=== PATIENT | male | born 1960 | race African-American/Black ===

== ENCOUNTER 2020-02-29 13:22 | Emergency (ER) | payer MEDICARE, MEDICAID ==
[2020-02-29] MEDS ORDERED: NORMAL SALINE 1000 ML 1,000 ML IV ONE (15:02)
--- NOTE | 2020-02-29 15:38 | ER Document Report ---
Entered by EMMA BOWER SCRIBE 02/29/20 1454 Acting as scribe for:LAVINIA SAINZ MD ED Fall - General Chief Complaint: Fall Stated Complaint: FALL Time Seen by Provider: 02/29/20 14:52 Primary Care Provider: NANI ANTHONY MD [Primary Care Provider] - Follow up as needed Mode of Arrival: Medic Information source: Parent Notes: This 59 year old male patient with a history significant for mental retardation, hypertension, hyperlipidemia, and type 2 diabetes brought in by EMS from home presents to the ED today for evaluation of a fall that occurred prior to arrival. Mother at bedside states that the patient was returning home after having a suprapubic catheter placed this afternoon when he got out of the car and fell x2 on the pavement. She states that he hit his head, but denies LOC. She mentions that it appeared as if he was unsteady on his feet and that he usually able to ambulated on his own without difficulty. She states that the patient has been NPO since yesterday evening. EMS reports BGL of 404. Past Medical History - General Information source: Parent - Social History Smoking Status: Unknown if Ever Smoked Smoking Education Provided: No Lives with: Parents Family History: Reviewed & Not Pertinent - Medical History Medical History: Other - Hx Mental Retardation - Past Medical History Cardiac Medical History: Reports: Hx Hypercholesterolemia, Hx Hypertension Endocrine Medical History: Reports: Hx Diabetes Mellitus Type 2 Renal/ Medical History: Reports: Hx Benign Prostatic Hyperplasia Physical Exam - Vital signs Vitals: Temp Pulse Resp BP Pulse Ox 97.3 F 103 H 18 129/72 H 100 02/29/20 13:43 02/29/20 13:43 02/29/20 13:43 02/29/20 13:43 02/29/20 13:43 - General General appearance: Alert In distress: None - HEENT Head: Abrasions - Abrasion and swelling over frontotemporal area of the scalp Eyes: Normal Pupils: PERRL - Respiratory Respiratory status: No respiratory distress Chest status: Nontender Breath sounds: Normal Chest palpation: Normal - Cardiovascular Rhythm: Regular Heart sounds: Normal auscultation Murmur: No Friction rub: No Gallop: None auscultated - Abdominal Inspection: Normal Distension: No distension Bowel sounds: Normal Tenderness: Nontender Organomegaly: No organomegaly - Back Back: Normal, Nontender - Extremities General upper extremity: Normal inspection General lower extremity: Normal inspection. No: Edema - Neurological Neuro grossly intact: Yes - Nonverbal at baseline per patient's mother - Psychological Associated symptoms: Normal affect, Normal mood - Skin Skin Temperature: Warm Skin Moisture: Dry Skin Color: Normal Course - Vital Signs Vital signs: Temp Pulse Resp BP Pulse Ox 97.3 F 103 H 18 129/72 H 100 02/29/20 13:43 02/29/20 13:43 02/29/20 13:43 02/29/20 13:43 02/29/20 13:43 - Laboratory Result Diagrams: 02/29/20 15:50 02/29/20 15:50 Laboratory results interpreted by me: 02/29/20 02/29/20 02/29/20 15:50 15:50 15:50 RBC 4.29 L Hgb 12.7 L Hct 36.8 L Plt Count 538 H Lymph % (Auto) 12.7 L BUN 42 H Creatinine 1.58 H Est GFR ( Amer) 55 L Est GFR (MDRD) Non-Af 45 L Glucose 358 H Hemoglobin A1c % 9.7 H ALT 173 H Alkaline Phosphatase 155 H - Diagnostic Test Radiology reviewed: Image reviewed, Reports reviewed - CT scan of the head shows chronic atrophy and microvascular ischemic changes with nothing acute. - EKG Interpretation by Me EKG shows normal: Sinus rhythm, [place], Intervals, QRS Complexes, ST-T Waves Rate: Tachycardia - 103 Discharge - Discharge Clinical Impression: Syncope and collapse, Dehydration, Poorly controlled diabetes mellitus Scalp contusion Qualifiers: Encounter type: initial encounter Qualified Code(s): S00.03XA - Contusion of scalp, initial encounter Condition: Stable Disposition: HOME, SELF-CARE Additional Instructions: Syncopal Episode: Syncope (fainting or near-fainting) can occur from many different health problems. Or it can be a simple fainting spell requiring no treatment. It is safe for you to go home, but further evaluation will likely be necessary. Your work-up may include tests for internal bleeding, heart disease, medication problems, or near-strokes. Tests are not always required, however, depending on the nature of your problem. The warning signs of an impending faint include: dizziness, lighthea dedness, nausea, hot flashes, tingling, and weakness. If this happens, lay down and put your feet up, then wait until all of these symptoms have passed before standing up again. If these episodes become recurrent, or if you develop chest pain, heart palpitations, mental confusion, blurred vision, or headache, then you should call the physician, or go to the emergency room. Dehydration: Dehydration can result from vomiting or diarrhea, fever, or decreased intake of fluids. If severe, hospitalization and intravenous fluids may be required. Most cases are treated at home with fluids by mouth. For the next 24 hours, drink lots of clear fluids. In mild cases, this can be soda pop or sports drinks. For more severe dehydration, the doctor may recommend special fluids such as Pedialyte or Lytren. Try to get three liters (3 quarts) of fluid per day. If vomiting occurs, continue to drink the fluids frequently (every 15 to 20 minutes), but in small amounts (one or two ounces). Depending on the type of dehydration, the doctor may prescribe antinausea medicine or potassium replacements. Call the doctor or return for re-examination if you become progressively we ak, vomit repeatedly, or have other new symptoms. Hyperglycemia: Your blood sugar was quite high today at 358. Hemoglobin A1c was 9.7 indicating these high blood sugars are a chronic problem. Your blood work today suggest that you are dehydrated. That would be expected since you had not had anything to eat or drink since before midnight. You probably collapsed due to your blood pressure going low when you stood up since you were dehydrated. Also your blood sugars are running quite high and that also contributes to becoming dehydrated. The contusion to your scalp is not serious. You should drink plenty of fluids throughout the day today and take all of your regular medications when you get home. Follow-up with your primary care provider and take copies of your lab work with you when you go to see him. RETURN TO THE EMERGENCY ROOM IF ANY NEW OR WORSENING SYMPTOMS. Referrals: NANI ANTHONY MD [Primary Care Provider] - Follow up as needed PRIETO ALVARES MD [NO LOCAL MD] - Follow up in 3-5 days I personally performed the services described in the documentation, reviewed and edited the documentation which was dictated to the scribe in my presence, and it accurately records my words and actions.
[2020-02-29 16:09] LABS: ABSOLUTE BASOPHILS # (AUTO) 0.1 10^3/uL (0.0-0.2); ABSOLUTE LYMPHOCYTES (AUTO) 1.3 10^3/uL (0.5-4.7); ABSOLUTE MONOCYTES (AUTO) 1.2 10^3/uL (0.1-1.4); ABSOLUTE NEUT (AUTO) 7.6 10^3/uL (1.7-8.2); BASOPHILS % (AUTO) 0.5 % (0-2); EOSINOPHILS % (AUTO) 0.2 % (0-6); HEMATOCRIT 36.8 % (37.9-51.0); HEMOGLOBIN 12.7 g/dL (13.5-17.0); LYMPHOCYTES % (AUTO) 12.7 % (13-45); MEAN CORPUSCULAR HEMOGLOBIN 29.7 pg (27.0-33.4); MEAN CORPUSCULAR HGB CONC 34.7 g/dL (32.0-36.0); MEAN CORPUSCULAR VOLUME 86 fl (80-97); MONOCYTES % (AUTO) 11.7 % (3-13); PLATELET COUNT 538 10^3/uL (150-450); RED BLOOD COUNT 4.29 10^6/uL (4.35-5.55); RED CELL DISTRIBUTION WIDTH 13.5 % (11.5-14.0); SEGMENTED NEUTROPHILS % (AUTO) 74.9 % (42-78); TOTAL CELLS COUNTED % (AUTO) 100 %; WHITE BLOOD COUNT 10.2 10^3/uL (4.0-10.5)
[2020-02-29 16:29] LABS: ALBUMIN 3.9 g/dL (3.5-5.0); ALKALINE PHOSPHATASE 155 U/L (38-126); ANION GAP 16 (5-19); ASPARTATE AMINO TRANSFERASE 51 U/L (17-59); BILIRUBIN,DIRECT 0.4 mg/dL (0.0-0.4); BILIRUBIN,TOTAL 0.6 mg/dL (0.2-1.3); BLOOD UREA NITROGEN 42 mg/dL (7-20); CALCIUM 9.4 mg/dL (8.4-10.2); CARBON DIOXIDE 22 mmol/L (22-30); CHLORIDE 101 mmol/L (98-107); CREATINE KINASE 58 U/L (55-170); GLUCOSE 358 mg/dL (75-110); POTASSIUM 4.5 mmol/L (3.6-5.0); TOTAL PROTEIN 7.1 g/dL (6.3-8.2)
--- NOTE | 2020-02-29 17:19 | RADIOLOGY REPORT (SQ) ---
EXAM DESCRIPTION: CT HEAD WITHOUT IMAGES COMPLETED DATE/TIME: 02/29/2020 5:05 pm REASON FOR STUDY: Fall, struck head on pavement, severe MR COMPARISON: None. TECHNIQUE: Axial images acquired through the brain without intravenous contrast. Images reviewed wi th bone, brain and subdural windows. Additional sagittal and coronal reconstructions were generated. Images stored on PACS. All CT scanners at this facility use dose modulation, iterative reconstruction, and/or weight based d osing when appropriate to reduce radiation dose to as low as reasonably achievable (ALARA). [facility]: Dose Right [facility]: CareDose [facility]: Dose Right [facility]: Teradose 4D [facility]: Smart USINE IO RADIATION DOSE: CT Rad equipment meets quality standard of care and radiation dose reduction techniq ues were employed. CTDIvol: 53.2 mGy. DLP: 1017 mGy-cm. mGy. LIMITATIONS: None. FINDINGS: VENTRICLES: Prominent. CEREBRUM: No masses. No hemorrhage. No midline shift. Areas of low density in the white matter mos t likely due to chronic micro-vascular ischemic change. No evidence for acute infarction. CEREBELLUM: No masses. No hemorrhage. No alteration of density. No evidence for acute infarction. EXTRAAXIAL SPACES: Mild age-related involutional change. No fluid collections. No masses. ORBITS AND GLOBE: No intra- or extraconal masses. Normal contour of globe without masses. CALVARIUM: No fracture. PARANASAL SINUSES: No fluid or mucosal thickening. SOFT TISSUES: No mass or hematoma. OTHER: No other significant finding. IMPRESSION: MILD CHRONIC CHANGES OF ATROPHY AND MICROVASCULAR ISCHEMIA. NO ACUTE PROCESS. EVIDENCE OF ACUTE STROKE: NO. TECHNICAL DOCUMENTATION: JOB ID: [id number] Quality ID # [id number]: Final reports with documentation of one or more dose reduction techniques (e.g., Au tomated exposure control, adjustment of the mA and/or kV according to patient size, use of iterative reconstruction technique) 2010 [email or web address]- All Rights Reserved Reading location - IP/workstation name: [email or web address]
--- NOTE | 2020-02-29 19:18 | EKG REPORT ---
SEVERITY:- OTHERWISE NORMAL ECG - SINUS TACHYCARDIA : Confirmed by: Linda Schroeder MD 29-Feb-2020 19:18:11
[2020-02-29 20:04] VITALS: BP 139/79
== END 2020-02-29 20:07 | disposition home or self-care (01) ==
LOC: ER 13:22
DX: S00.03XA Contusion of scalp, initial encounter (principal); W18.30XA Fall on same level, unspecified, initial encounter; R55 Syncope and collapse; E86.0 Dehydration; E11.9 Type 2 diabetes mellitus without complications; I10 Essential (primary) hypertension; E78.5 Hyperlipidemia, unspecified
CPT/HCPCS: 93005; 99285; 96360; 96361; 36415; 82550; 85025; 80053; 84484; 83036; 70450; 93010; J7030